=== PATIENT | female | born 1990 | race Caucasian/White ===

== ENCOUNTER → 2020-06-23 | Outpatient (CLI) | payer OTHER ==
--- NOTE | 2020-06-23 16:29 | KCIC ---
Study: MRI left ankle without contrast INDICATION: Left ankle swelling. Lateral pain. COMPARISON: 06/16/2020 radiographs. TECHNIQUE: Multiplanar MR imaging of the left ankle performed without the use of intravenous or intra-articular contrast. FINDINGS: Bones/cartilage: No acute fracture. Marrow signal is within normal limits. No chondral defect seen at the ankle. Ligaments: Intact syndesmotic ligaments. Intact ATFL, CFL and PTFL. Intact superficial and deep deltoid ligament components. Unremarkable spring ligament. Unremarkable Lisfranc ligament. Musculotendinous: Intact and normally located peroneal tendons. Unremarkable PTT, FDL and FHL tendons. Unremarkable extensors. Normal signal and morphology of the Achilles. Faint edema-like signal within the distal flexor hallucis longus muscle belly at and just above the myotendinous junction, images 5 through 7 series 5. Sinus Tarsi: Normal. Tarsal tunnel: No space-occupying mass or accessory muscle. Plantar fascia: Unremarkable. Miscellaneous: Small ankle joint effusion preferentially distending the anterolateral and posterior aspect of the joint space such as on images 14 and 15 series 5. Trace amount of retrocalcaneal bursal fluid and thin T2 signal elevation along the anterior margin of the distal Achilles, image 15 series 5, but not to the extent that would suggest bursitis or paratenonitis, respectively. Mild subcutaneous edema at a few locations such as dorsal to the distal Achilles, image 17 series 5 and lateral more so than medial ankle. IMPRESSION: 1. Small ankle joint effusion preferentially distending the anterolateral and posterior joint space but there is no localized synovitis or other findings that would suggest ankle impingement. Intact ankle ligaments and tendons. 2. Trace edema at the FHL myotendinous junction which is nonspecific but could be from minimal strain in the appropriate clinical setting. 3. Mild scattered subcutaneous edema such as dorsal to the distal Achilles and at the lateral ankle. Electronically signed by: ORI VO MD (06/23/2020 4:26 PM) [id number]
== END ==
LOC: KCIC MRI 15:17
PROVIDERS: ATTEND Orthopaedic Surgery
DX: M25.472 Effusion, left ankle (principal)
CPT/HCPCS: 73721